=== PATIENT | male | born 2000 | race Hispanic/Latino ===

== ENCOUNTER 2022-07-05 08:34 | Emergency (ER) | payer SELFPAY ==
[~2022-07-05] VITALS: Ht 182.9 cm; Wt 81.6 kg
[2022-07-05 09:10] VITALS: BP 129/78
[2022-07-05] MEDS ORDERED: CEPHALEXIN500 M1 PO (10:05)
[2022-07-05] MEDS ORDERED: BACTRIM DS1 TAB PO (10:05)
[2022-07-05 10:25] VITALS: BP 129/78
== END 2022-07-05 10:45 | disposition home or self-care (01) | DRG 603 ==
LOC: ED 08:34
PROC: 0H9KXZZ Drainage of Right Lower Leg Skin, External Approach (ICD-10-PCS; principal; 2022-07-05)
DX: L02.415 Cutaneous abscess of right lower limb (principal)